=== PATIENT | female | born 1935 | race Caucasian/White ===

== ENCOUNTER 2017-07-11 03:25 | Observation (INO) | payer OTHER, BC ==
[2017-07-11] MEDS ORDERED: NS 1,000 ML IV ONE (03:30)
[2017-07-11] MEDS ORDERED: ASPIRIN 81 MG CHEWABLE TAB PO ONE (03:30)
--- NOTE | 2017-07-11 03:30 | EDPHY ---
H & P Stated Complaint: Chest, shoulder, neck pain Time Seen by Provider: 07/11/17 03:30 HPI/ROS: HPI CHIEF COMPLAINT: Chest discomfort, arm discomfort, neck pain, back pain HISTORY OF PRESENT ILLNESS: Patient very pleasant 81-year-old female, she states she does not really have any significant medical history takes a baby aspirin per day. No history of cardiovascular disease, she presents emergency room with chest discomfort. This started around 5-6 hours ago. She describes it as a discomfort in her chest radiates down her left arm, additionally some discomfort that radiates down her right arm and back and neck. She has associated nausea but no vomiting. Denies diaphoresis. Denies pleuritic pain. This woke her from sleep 5 hr ago. It has continued but somewhat gotten better. Current level pain 2/10. Past Medical History: Denies medical history Past Surgical History: Colon cancer. Social History: Denies any drugs alcohol tobacco. Visiting [place] from [facility]. Lives outside of [place]. Family History: Noncontributory ROS REVIEW OF SYSTEMS: A comprehensive 10 point review of systems is otherwise negative aside from elements mentioned in the history of present illness. Exam Constitutional appears nontoxic triage nursing summary reviewed, vital signs reviewed, awake/alert. Eyes normal conjunctivae and sclera, EOMI, PERRLA. HENT normal inspection, atraumatic, moist mucus membranes, no epistaxis, neck supple/ no meningismus, no raccoon eyes. Respiratory clear to auscultation bilaterally, normal breath sounds, no respiratory distress, no wheezing. Cardiovascular rate normal, regular rhythm, no murmur, no edema, distal pulses normal. Gastrointestinal soft, non-tender, no rebound, no guarding, normal bowel sounds, no distension, no pulsatile mass. Genitourinary no CVA tenderness. Musculoskeletal no midline vertebral tenderness, full range of motion, no calf swelling, no tenderness of extremities, no meningismus, good pulses, neurovascularly intact. Skin pink, warm, & dry, no rash, skin atraumatic. Neurologic awake, alert and oriented x 3, AAOx3, moves all 4 extremities equally, motor intact, sensory intact, CN II-XII intact, normal cerebellar, normal vision, normal speech. Psychiatric normal mood/affect. Heme/Lymph/Immune no lymphadenopathy. Differential diagnosis includes but is not limited to: ACS, atypical chest pain , pneumothorax, pneumonia, pulmonary embolism, aortic dissection, congestive heart failure, tumor, musculoskeletal pain, esophageal pain, GERD, peptic ulcer disease, pancreatitis Medical Decision Making: Plan for this patient IV establishment with blood draw , full buckle sewer obtain EKG, obtain troponin, rule out acute coronary syndrome. Re-evaluation: EKG interpretation by me on record in [employer] system. Impression time of EKG 3:35 a.m., sinus rhythm rate of 62, T-wave abnormality V1 V2 V3. Subtle abnormality V4 V5. No ST elevation. No significant ST depression. 0609AM: Patient re-evaluated chest pain-free resting comfortably. I discussed all her results with her. She has normal D-dimer negative troponin. She did receive a CT angiogram of her chest due to her description of her pain of this pain in his substernal region going to her back down her arms and neck. Will out dissection. The patient's CT angiogram chest shows no evidence PE however does show a small thoracic aortic aneurysm, additionally coronary artery disease seen in the LAD and left circ. No indication she is having acute coronary syndrome she does have an abnormal EKG with abnormal T-waves. Plan will be for admission the hospital for further cardiac risk stratification. Recommend repeat EKG and troponin. She is chest pain-free at time of admission. Source: Patient - Personal History Current Tetanus Diphtheria and Acellular Pertussis (TDAP): Yes - Medical/Surgical History Hx Asthma: No Hx Chronic Respiratory Disease: No Hx Diabetes: No Hx Cardiac Disease: No Hx Renal Disease: No Hx Cirrhosis: No Hx Alcoholism: No Hx HIV/AIDS: No Hx Splenectomy or Spleen Trauma: No Other PMH: denies - Social History Smoking Status: Never smoked Constitutional: Initial Vital Signs Temperature (C) 36.3 C 07/11/17 03:27 Heart Rate 66 07/11/17 03:27 Respiratory Rate 18 07/11/17 03:27 Blood Pressure 158/110 H 07/11/17 03:27 O2 Sat (%) 95 07/11/17 03:27 O2 Delivery Mode Room Air Allergies/Adverse Reactions: Sulfa (Sulfonamide Antibiotics) Allergy (Verified 07/11/17 03:26) Medical Decision Making - Data Points Laboratory Results: Laboratory Results 07/11/17 03:40 07/11/17 03:40 07/11/17 07/11/17 07/11/17 03:40 03:40 03:40 WBC 5.64 10^3/uL 10^3/uL (3.80-9.50) RBC 5.19 10^6/uL 10^6/uL (4.18-5.33) Hgb 15.5 g/dL g/dL (12.6-16.3) Hct 46.4 % % (38.0-47.0) MCV 89.4 fL fL (81.5-99.8) MCH 29.9 pg pg (27.9-34.1) MCHC 33.4 g/dL g/dL (32.4-36.7) RDW 13.3 % % (11.5-15.2) Plt Count 222 10^3/uL 10^3/uL (150-400) MPV 8.8 fL fL (8.7-11.7) Neut % (Auto) 55.1 % % (39.3-74.2) Lymph % (Auto) 30.3 % % (15.0-45.0) [place] % (Auto) 9.6 % % (4.5-13.0) Eos % (Auto) 3.4 % % (0.6-7.6) Baso % (Auto) 1.2 % % (0.3-1.7) Nucleat RBC Rel Count 0.0 % % (0.0-0.2) Absolute Neuts (auto) 3.11 10^3/uL 10^3/uL (1.70-6.50) Absolute Lymphs (auto) 1.71 10^3/uL 10^3/uL (1.00-3.00) Absolute Monos (auto) 0.54 10^3/uL 10^3/uL (0.30-0.80) Absolute Eos (auto) 0.19 10^3/uL 10^3/uL (0.03-0.40) Absolute Basos (auto) 0.07 10^3/uL 10^3/uL (0.02-0.10) Absolute Nucleated RBC 0.00 10^3/uL 10^3/uL (0-0.01) Immature Gran % 0.4 % % (0.0-1.1) Immature Gran # 0.02 10^3/uL 10^3/uL (0.00-0.10) PT 13.0 SEC SEC (12.0-15.0) INR 0.96 (0.83-1.16) APTT 27.8 SEC SEC (23.0-38.0) D-Dimer Sodium 143 mEq/L mEq/L (135-145) Potassium 4.0 mEq/L mEq/L (3.5-5.2) Chloride 104 mEq/L mEq/L (97-110) Carbon Dioxide 26 mEq/l mEq/l (22-31) Anion Gap 13 mEq/L mEq/L (8-16) BUN 13 mg/dL mg/dL (7-23) Creatinine 0.7 mg/dL mg/dL (0.6-1.0) Estimated GFR > 60 Glucose 112 mg/dL H mg/dL (70-100) Calcium 8.7 mg/dL mg/dL (8.5-10.4) Magnesium 2.2 mg/dL mg/dL (1.6-2.3) Total Bilirubin 1.2 mg/dL mg/dL (0.1-1.4) Conjugated Bilirubin 0.4 mg/dL mg/dL (0.0-0.5) Unconjugated Bilirubin 0.8 mg/dL mg/dL (0.0-1.1) AST 27 IU/L IU/L (14-46) ALT 34 IU/L IU/L (9-52) Alkaline Phosphatase 98 IU/L IU/L (38-126) Creatine Kinase 201 IU/L H IU/L (0-156) CK-MB (CK-2) Fraction 4.22 ng/mL H ng/mL (0.00-3.19) CK-MB (CK-2) % 2.1 % % (0.0-4.0) Creatine Kinase Interp NEGATIVE (NEGATIVE) Troponin I < 0.012 ng/mL ng/mL (0.000-0.034) NT-Pro-B Natriuret Pep 68 pg/mL pg/mL (0-450) Total Protein 7.1 g/dL g/dL (6.3-8.2) Albumin 4.1 g/dL g/dL (3.5-5.0) Lipase 160 IU/L IU/L (23-300) 07/11/17 03:30 WBC RBC Hgb Hct MCV MCH MCHC RDW Plt Count MPV Neut % (Auto) Lymph % (Auto) [place] % (Auto) Eos % (Auto) Baso % (Auto) Nucleat RBC Rel Count Absolute Neuts (auto) Absolute Lymphs (auto) Absolute Monos (auto) Absolute Eos (auto) Absolute Basos (auto) Absolute Nucleated RBC Immature Gran % Immature Gran # PT INR APTT D-Dimer 0.33 ug/mLFEU ug/mLFEU (0.00-0.50) Sodium Potassium Chloride Carbon Dioxide Anion Gap BUN Creatinine Estimated GFR Glucose Calcium Magnesium Total Bilirubin Conjugated Bilirubin Unconjugated Bilirubin AST ALT Alkaline Phosphatase Creatine Kinase CK-MB (CK-2) Fraction CK-MB (CK-2) % Creatine Kinase Interp Troponin I NT-Pro-B Natriuret Pep Total Protein Albumin Lipase Medications Given: Discontinued Medications Aspirin (Aspirin) 324 mg PO EDNOW ONE Stop: 07/11/17 03:31 Last Admin: 07/11/17 03:50 Dose: 324 mg Sodium Chloride (Ns) 1,000 mls @ 0 mls/hr IV EDNOW ONE; Wide Open PRN Reason: Protocol Stop: 07/11/17 03:31 Last Admin: 07/11/17 03:50 Dose: 1,000 mls Departure - Departure Disposition: [facility] Inpatient Acute Clinical Impression: Chest pain Qualifiers: Chest pain type: unspecified Qualified Code(s): R07.9 - Chest pain, unspecified Condition: Fair Referrals: NONE *PRIMARY CARE P,. [Primary Care Provider] - As per Instructions
--- NOTE | 2017-07-11 03:37 | CPEKG ---
Heart Rate: 62 RR Interval: 968 P-R Interval: 216 QRSD Interval: 86 QT Interval: 436 QTC Interval: 443 P [place]: 50 QRS [place]: -32 T Wave [place]: -15 EKG Severity - ABNORMAL ECG - EKG Impression: SINUS RHYTHM EKG Impression: LEFT AXIS DEVIATION EKG Impression: PROBABLE LEFT VENTRICULAR HYPERTROPHY EKG Impression: BORDERLINE T ABNORMALITIES, INFERIOR LEADS Electronically Signed By: Luis Germain 11-Jul-2017 06:56:56
[2017-07-11 03:52] LABS: PLATELET COUNT 222 10^3/uL (150-400)
[2017-07-11 03:59] LABS: INR 0.96 (0.83-1.16)
[2017-07-11 04:10] LABS: CREATINE KINASE 201 IU/L (0-156)
[2017-07-11] MEDS ORDERED: IOPAMIDOL (ISOVUE 370) 100 ML BTL IV ONE (04:58)
[2017-07-11] MEDS ORDERED: ONDANSETRON DISINTEGRATING 4 MG TAB PO PRN (06:08)
[2017-07-11] MEDS ORDERED: ACETAMINOPHEN 325 MG TAB PO PRN (06:08)
[2017-07-11] MEDS ORDERED: ONDANSETRON 4 MG/2 ML VIAL IVP PRN (06:08)
--- NOTE | 2017-07-11 06:24 | PDGENHP ---
History and Physical - Chief Complaint Chest pain - History of Present Illness 81 yo F w/ minimal PMHx p/w chest pain. Patient first noticed pain last night around 10 PM. She describes central chest pressure with radiation to bilateral shoulders and mild shortness of breath. The pain started at rest; it persisted for several hours so she decided to come to the ED for evaluation. She has no prior hx of CAD and has no significant risk factors aside from age. Her work-up in the ED is remarkable only for T-wave inversions on ECG; there are no priors for comparison. CTPE was negative for dissection or PE. History Information - Allergies/Home Medication List Allergies/Adverse Reactions: Sulfa (Sulfonamide Antibiotics) Allergy (Verified 07/11/17 03:26) I have personally reviewed and updated: family history, medical history - Past Medical History cancer (Colon cancer s/p colectomy in 2005) - Surgical History Reports: colectomy - Family History Negative for: CAD Additional family history: Denies family hx of heart disease - Social History Smoking Status: Never smoked Review of Systems Review of Systems: ROS: 10pt was reviewed & negative except for what was stated in HPI & below Physical Exam Physical Exam: Temp Pulse Resp BP Pulse Ox 36.3 C 55 L 16 146/82 H 95 07/11/17 03:27 07/11/17 04:00 07/11/17 04:00 07/11/17 04:00 07/11/17 04:00 Constitutional: no apparent distress, not in pain Eyes: PERRL, EOMI Ears, Nose, Mouth, Throat: moist mucous membranes, no oral mucosal ulcers Cardiovascular: regular rate and rhythym, no murmur, rub, or gallop, other (S4) Respiratory: no respiratory distress, clear to auscultation Gastrointestinal: normoactive bowel sounds, soft, non-tender abdomen Skin: warm, normal color Musculoskeletal: full muscle strength, no muscle tenderness Neurologic: AAOx3, CN II-XII Intact Psychiatric: interacting appropriately, not anxious Lab Data & Imaging Review 07/11/17 03:40 07/11/17 03:40 WBC 5.64 10^3/uL (3.80-9.50) 07/11/17 03:40 RBC 5.19 10^6/uL (4.18-5.33) 07/11/17 03:40 Hgb 15.5 g/dL (12.6-16.3) 07/11/17 03:40 Hct 46.4 % (38.0-47.0) 07/11/17 03:40 MCV 89.4 fL (81.5-99.8) 07/11/17 03:40 MCH 29.9 pg (27.9-34.1) 07/11/17 03:40 MCHC 33.4 g/dL (32.4-36.7) 07/11/17 03:40 RDW 13.3 % (11.5-15.2) 07/11/17 03:40 Plt Count 222 10^3/uL (150-400) 07/11/17 03:40 MPV 8.8 fL (8.7-11.7) 07/11/17 03:40 Neut % (Auto) 55.1 % (39.3-74.2) 07/11/17 03:40 Lymph % (Auto) 30.3 % (15.0-45.0) 07/11/17 03:40 [place] % (Auto) 9.6 % (4.5-13.0) 07/11/17 03:40 Eos % (Auto) 3.4 % (0.6-7.6) 07/11/17 03:40 Baso % (Auto) 1.2 % (0.3-1.7) 07/11/17 03:40 Nucleat RBC Rel Count 0.0 % (0.0-0.2) 07/11/17 03:40 Absolute Neuts (auto) 3.11 10^3/uL (1.70-6.50) 07/11/17 03:40 Absolute Lymphs (auto) 1.71 10^3/uL (1.00-3.00) 07/11/17 03:40 Absolute Monos (auto) 0.54 10^3/uL (0.30-0.80) 07/11/17 03:40 Absolute Eos (auto) 0.19 10^3/uL (0.03-0.40) 07/11/17 03:40 Absolute Basos (auto) 0.07 10^3/uL (0.02-0.10) 07/11/17 03:40 Absolute Nucleated RBC 0.00 10^3/uL (0-0.01) 07/11/17 03:40 Immature Gran % 0.4 % (0.0-1.1) 07/11/17 03:40 Immature Gran # 0.02 10^3/uL (0.00-0.10) 07/11/17 03:40 PT 13.0 SEC (12.0-15.0) 07/11/17 03:40 INR 0.96 (0.83-1.16) 07/11/17 03:40 APTT 27.8 SEC (23.0-38.0) 07/11/17 03:40 D-Dimer 0.33 ug/mLFEU (0.00-0.50) 07/11/17 03:30 Sodium 143 mEq/L (135-145) 07/11/17 03:40 Potassium 4.0 mEq/L (3.5-5.2) 07/11/17 03:40 Chloride 104 mEq/L (97-110) 07/11/17 03:40 Carbon Dioxide 26 mEq/l (22-31) 07/11/17 03:40 Anion Gap 13 mEq/L (8-16) 07/11/17 03:40 BUN 13 mg/dL (7-23) 07/11/17 03:40 Creatinine 0.7 mg/dL (0.6-1.0) 07/11/17 03:40 Estimated GFR > 60 07/11/17 03:40 Glucose 112 mg/dL (70-100) H 07/11/17 03:40 Calcium 8.7 mg/dL (8.5-10.4) 07/11/17 03:40 Magnesium 2.2 mg/dL (1.6-2.3) 07/11/17 03:40 Total Bilirubin 1.2 mg/dL (0.1-1.4) 07/11/17 03:40 Conjugated Bilirubin 0.4 mg/dL (0.0-0.5) 07/11/17 03:40 Unconjugated Bilirubin 0.8 mg/dL (0.0-1.1) 07/11/17 03:40 AST 27 IU/L (14-46) 07/11/17 03:40 ALT 34 IU/L (9-52) 07/11/17 03:40 Alkaline Phosphatase 98 IU/L (38-126) 07/11/17 03:40 Creatine Kinase 201 IU/L (0-156) H 07/11/17 03:40 CK-MB (CK-2) Fraction 4.22 ng/mL (0.00-3.19) H 07/11/17 03:40 CK-MB (CK-2) % 2.1 % (0.0-4.0) 07/11/17 03:40 Creatine Kinase Interp NEGATIVE (NEGATIVE) 07/11/17 03:40 Troponin I < 0.012 ng/mL (0.000-0.034) 07/11/17 03:40 NT-Pro-B Natriuret Pep 68 pg/mL (0-450) 07/11/17 03:40 Total Protein 7.1 g/dL (6.3-8.2) 07/11/17 03:40 Albumin 4.1 g/dL (3.5-5.0) 07/11/17 03:40 Lipase 160 IU/L (23-300) 07/11/17 03:40 Imaging Review: Hx: Back, Chest, Arm, and Neck Pain (BP: 158/110, abnl EKG) No evidence of PE Borderline aneurysmal dilatation of ascending thoracic aorta (4.0 cm) with no dissection; extensive atherosclerotic plaque in aorta, but no penetrating ulcer Cardiomegaly with LAD and Left CX calcs 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 Results called to Dr. Germain at 5:45 am. MB Visualized and Interpreted Chest x-ray results: Yes Chest X-Ray results: no infiltrate Visualized and Interpreted EKG results: Yes EKG Interpretation: Positive for: normal sinsus rhythm, T waves inversion ( Diffusely) Assessment & Plan Assessment: 81 yo F w/ minimal PMHx p/w chest pain. Plan: 1. Chest pain - Central chest pressure with radiation to b/l shoulders. Troponin negative but ECG with T-wave inversions diffusely of unclear significance. CTPE negative for PE or dissection but did show borderline aortic aneurysm, cardiomegaly, and coronary calcification. - Admit to PCU for observation - Monitor on telemetry, trend cardiac enzymes - Next troponin at 1200, patient eager to make tomorrow morning flight back to [place] where she lives 2. Aortic aneurysm - Measured at [address]; will require outpatient monitoring. 3. Hx Colon CA - S/p colectomy in 2005, now cancer free. Diet - NPO pending ACS r/o Code - Full Ppx - LMWH Dispo - Admit under observation status
[2017-07-11] MEDS ORDERED: ENOXAPARIN 40 MG/0.4 ML SYR SC SCH (09:00)
--- NOTE | 2017-07-11 09:52 | HOSPPROG ---
Hospitalist Progress Note Assessment/Plan: 81-year-old with benign past medical history presents with chest pain. Pain started at 10:00 p.m. Primarily in her bilateral shoulders and back with mild chest pain. Associated with shortness of breath. It did persist for several hours and she came in to the emergency department for further evaluation. No history of chest pain previously # chest pain, somewhat atypical but with abnormal baseline EKG with T-wave inversions. CT angiogram was negative for PE * Check echo * Check Lexiscan stress test given abnormal EKG * Repeat troponin now # history of colon cancer status post colectomy, in remission # DVT prophylaxis on low-molecular weight heparin Subjective: Patient new to me and chart reviewed currently with minimal pain except for little discomfort in her back but no shoulder pain or chest pain Objective: Vital Signs Temp Pulse Resp BP Pulse Ox 36.4 C 60 17 148/92 H 96 07/11/17 08:00 07/11/17 08:00 07/11/17 08:00 07/11/17 08:00 07/11/17 08:00 07/10/17 07/11/17 07/12/17 05:59 05:59 05:59 Intake Total 1000 Balance 1000 PT 13.0 SEC (12.0-15.0) 07/11/17 03:40 INR 0.96 (0.83-1.16) 07/11/17 03:40 - Physical Exam Constitutional: no apparent distress, appears nourished Eyes: PERRL, anicteric sclera, EOMI Ears, Nose, Mouth, Throat: moist mucous membranes, hearing normal Cardiovascular: regular rate and rhythym Respiratory: no respiratory distress, no rales or rhonchi, clear to auscultation Gastrointestinal: normoactive bowel sounds, soft, non-tender abdomen Genitourinary: no bladder fullness Skin: warm, normal color Musculoskeletal: abnormal gait (Uses a walker) Neurologic: AAOx3, No facial droop Psychiatric: interacting appropriately, not anxious ICD10 Worksheet Patient Problems: Problems Problem Status Onset Chest pain Acute
[2017-07-11] MEDS ORDERED: REGADENOSON 0.4 MG/5 ML SYR IVP ONE (11:01)
[2017-07-11 11:13] VITALS: BP 126/75
--- NOTE | 2017-07-11 12:14 | CPR ---
[f rep st] NONINVASIVE CARDIAC PROCEDURE REPORT DATE OF PROCEDURE: 07/11/2017 PROCEDURE: Lexiscan portion of a Lexiscan Cardiolite stress test. INDICATIONS: Chest pain and abnormal EKG. Evaluate for cardiac ischemia. CONSENT: Signed. Risks, benefits, and alternatives discussed with patient. She wishes to proceed. DESCRIPTION OF THE STRESS TEST: The patient's initial EKG demonstrated sinus rhythm with T-wave inve rsions and ST depression in her anterolateral leads. Her initial heart rate was 59 with a blood pres sure of 157/70. Lexiscan was infused per IV protocol. This was followed by 30 millicuries of techne [id number]. The patient had mild flushing and abdominal nausea during the procedure, which resolved. Her EKG did not change during the chemical stress test. Her heart rate went to 80 beats per minute a nd her blood pressure temporarily dropped to 134/70. Clinically, she returned to her baseline and wa s sent to the Nuclear Department for Cardiolite imaging. IMPRESSION: 1. Nondiagnostic stress test portion of IV Lexiscan procedure secondary to inability to reach target heart rate and baseline ST depression. 2. Cardiolite images pending. COMPLICATIONS: None. /[id number]/MODL
--- NOTE | 2017-07-11 14:19 | GDS ---
[f rep st] DISCHARGE SUMMARY DIAGNOSES: 1. Chest pain, atypical. 2. Thoracic aortic aneurysm at 4.0 cm. 3. Remote history of colon cancer. PROCEDURES DONE: 1. CT angiogram of the chest. No CT evidence of pulmonary thromboemboli. Borderline aneurysmal dil atation of the ascending thoracic aorta, measuring 4.0 cm, with no dissection. Coronary artery calci fications noted. Echocardiogram, normal EF, mild LVH. 2. Lexiscan stress test with myocardial perfusion imaging. Normal left ventricular EF of 71%. No f ocal wall motion abnormalities. No ischemia or infarct. HOSPITAL COURSE: The patient is an 81-year-old, currently visiting from [place]. She is relatively healthy. She comes in with acute onset of chest pain the night of admission. When the chest pain w ould not resolve, she came into the emergency room for further evaluation. They gave her some morphi ne and admitted her overnight for observation, and her chest pain has since resolved. Troponins were negative on repeat. Electrocardiogram did show some diffuse T-wave inversions throughout the precor dium, but no obvious ischemic changes. She underwent an echocardiogram and a Lexiscan stress test wi th the results above. It is unclear to the etiology of her chest pain, but certainly she could have some atherosclerotic heart disease, and I recommend she follow up with her support specialist when she retu rns to [place]. We will give her copies of all of her tests done here in the hospital. Currently, she feels well. She is chest pain free and is ready to go home. CONDITION ON DISCHARGE: Good. Vital signs are stable. DISCHARGE MEDICATIONS: Please see discharge medication form. FOLLOWUP: She will follow up with her support specialist when she returns to [place]. /[id number]/MODL
--- NOTE | 2017-07-11 14:31 | ASMTCMCOM ---
CM Note CM Note Notes: Chart reviewed. Patient has been medically cleared for discharge to home via hospital medicine. No needs identified. Plan: Home Independently. Date Signed: 07/11/2017 02:31 PM Electronically Signed By:Razia Cerrato RN
[2017-07-12] MEDS ORDERED: ASPIRIN EC 81 MG TAB PO SCH (09:00)
== END 2017-07-11 15:00 | disposition home or self-care (01) ==
LOC: F2W 07:43
PROVIDERS: ADMIT Student in an Organized Health Care Education/Training Program; ATTEND Internal Medicine
DX: R07.9 Chest pain, unspecified (principal); I71.2 Thoracic aortic aneurysm, without rupture; R94.31 Abnormal electrocardiogram [ECG] [EKG]; E86.9 Volume depletion, unspecified; M25.511 Pain in right shoulder; M25.512 Pain in left shoulder; M54.9 Dorsalgia, unspecified; I51.7 Cardiomegaly; I25.10 Atherosclerotic heart disease of native coronary artery without angina pectoris; Z79.82 Long term (current) use of aspirin; Z85.038 Personal history of other malignant neoplasm of large intestine; Z90.49 Acquired absence of other specified parts of digestive tract; Z88.2 Allergy status to sulfonamides
CPT/HCPCS: 71045; 71275; 78451; 93005; 93017; 93306; A9500; G0378; J1650; J2785; Q9967